=== PATIENT | female | born 1955 | race Caucasian/White ===

== ENCOUNTER 2022-12-31 13:41 | Emergency (ER) | payer MEDICARE, SELFPAY ==
[2022-12-31 13:57] VITALS: BP 131/67; PULSE 82; RESP 18; TEMP 36.3; O2SAT 97
--- NOTE | 2022-12-31 14:21 | ED.URI ---
HPI - URI/Sore Throat General Chief Complaint: Upper Respiratory Infection Stated Complaint: coughing, irritation to right eye Time Seen by Provider: 12/31/22 14:20 Source: patient, RN notes reviewed and old records reviewed Mode of arrival: ambulatory Limitations: no limitations History of Present Illness HPI Narrative: 67-year-old female presents to the [facility] with a cough times the last 3 weeks. Reports his is productive at times, has tried [id number] products. Tried calling her primary care provider and her liver transplant team and was referred to the [facility]. Patient also reports irritation to the right. Patient states she has been using Vicks and may have gotten in her eye yesterday. Denies any significant pain. Denies any blurry vision or change in vision. No crusting over this morning. Wears glasses but does not were contacts. Denies any trauma. Related Data Home Medications Medication Instructions Recorded Confirmed sirolimus 0.5 mg tablet 0.5 mg PO DAILY 12/31/22 12/31/22 tacrolimus 0.5 mg capsule, 1 mg PO BID 12/31/22 12/31/22 immediate-release ursodiol 300 mg capsule 300 mg PO TID 12/31/22 12/31/22 Allergies Allergy/AdvReac Type Severity Reaction Status Date / Time aspirin Allergy Rash Verified 12/31/22 14:09 Penicillins Allergy Rash Verified 12/31/22 14:09 Review of Systems Review of Systems: All systems reviewed & are unremarkable except as noted in HPI and below Constitutional: Constitutional: Reports no additional constitutional complaints Eyes: Eyes: Reports as per HPI ENT: Reports system reviewed and no additional complaints, except as documented Cardiovascular: Cardiovascular: Reports no additional cardiovascular complaints, Denies chest pain and Denies dyspnea Respiratory: Respiratory: Reports as per HPI, Reports chest congestion, Reports cough and Denies dyspnea Gastrointestinal: Gastrointestinal: Reports no additional gastrointestinal complaints, Denies abdominal pain, Denies nausea and Denies vomiting Musculoskeletal: Musculoskeletal: Reports no additional musculoskeletal complaints Integumentary/Breasts: Skin/Breast: Reports system reviewed and no additional complaints, except as docu Neurologic: Reports system reviewed and no additional complaints, except as documented Psychiatric: Psychiatric: Reports no additional psychiatric complaints Allergic/Immunologic: Allergic/Immunologic: Reports no additional allergic/immunologic complaints PMFSH Surgical History Surgical History Liver transplanted Comments At the time of my signature, I reviewed and agree with the nursing past medical, surgical, social, and family history. There is no relevant family history pertinent to the patient complaint. Exam Const: General: cooperative, healthy appearing, comfortable, no acute distress, well developed, alert and well nourished Nutritional Appearance: well nourished Orientation/consciousness: patient oriented x3 Limitations: no limitations HENMT: Head: normal to inspection Ears: hearing grossly normal bilaterally and external ears normal Face/Nose/Sinus: Normal external nose present, Normal nares present, Normal nasal mucous membranes and turbinates present and normal facial exam Face and sinus: normal facial exam Mouth: Yes Normal oral and palatal mucosa present, Yes lip normal and Yes moist mucous membranes Throat: posterior oropharynx normal and uvula midline Eyes: General: appearance normal, both eyes and all related structures Alignment and Position: alignment normal Periorbital: periorbital findings normal Conjunctivae: conjunctivae normal and conjunctival abnormality right conjunctival injection (right lower) localized; without discharge and without pallor Pupils: Equal, round and reactive pupils present EOM: EOMs intact bilaterally Other: Lower lid no foreign body, partially inverted left upper lid, was
== END 2022-12-31 14:50 | disposition home or self-care (01) ==
PROVIDERS: Emergency Provider Nurse Practitioner; PCP Hospitalist
DX: J40 Bronchitis, not specified as acute or chronic (principal); H57.11 Ocular pain, right eye
CPT/HCPCS: 99203; G0463